=== PATIENT | male | born 1960 | race Caucasian/White ===

== ENCOUNTER 2020-06-29 11:32 | Outpatient (NON) | payer BC, SELFPAY ==
[2020-06-29 16:05] LABS: Influenza Control Positive
[2020-06-30 06:43] LABS: SARS-CoV-2 RNA PCR Positive
== END 2020-06-29 11:33 ==
PROVIDERS: PCP Internal Medicine; Visit Provider Internal Medicine
DX: U07.1 COVID-19 (principal)
CPT/HCPCS: 87635; 87804; C9803; U0003

== ENCOUNTER 2021-02-22 14:14 | Outpatient (CLI) | payer BC, SELFPAY ==
--- NOTE | ~2021-02-22 | XR_ITS ---
EXAMINATION: XR abdomen/kub 1V DATE: 02/22/2021 14:45 INDICATION: Other microscopic hematuria. TECHNIQUE: A supine view of the abdomen on 2 radiographs was obtained. COMPARISON: None. FINDINGS: There are no dilated loops of bowel. There is a 2 mm stone in right kidney. There is a 2 mm calcification in left pelvis. IMPRESSION: 1. 2 mm right kidney stone. 2. 2 mm calcification in left pelvis, which may be a phlebolith or distal ureteral stone. Reviewed, dictated and finalized at location A. IMPRESSION: 1. 2 mm right kidney stone. 2. 2 mm calcification in left pelvis, which may be a phlebolith or distal urete ral stone.
== END 2021-02-22 14:15 | disposition home or self-care (01) ==
LOC: ANHIMG 14:16
PROVIDERS: PCP Internal Medicine; Visit Provider Internal Medicine
DX: R31.29 Other microscopic hematuria (principal); N20.0 Calculus of kidney
CPT/HCPCS: 74018

== ENCOUNTER 2022-10-15 12:18 | Outpatient (CLI) | payer OTHER, SELFPAY ==
--- NOTE | ~2022-10-15 | XR_ITS ---
XR chest 2V DATE: 10/15/2022 12:45 INDICATION: Cough for 3 months TECHNIQUE: PA and lateral views COMPARISON: 05/17/2018 PA and lateral chest FINDINGS: Normal heart size. No hilar or mediastinal enlargement. No pulmonary infiltrate or consolid ation, pleural effusion or pulmonary mass congestion or pneumothorax. IMPRESSION: No active cardiopulmonary disease Reviewed, dictated and finalized at location L. RAFT ENGINEER
== END 2022-10-15 12:19 | disposition home or self-care (01) ==
LOC: ANHIMG 12:25
PROVIDERS: PCP Internal Medicine; Visit Provider Nurse Practitioner Family
DX: R05.9 Cough, unspecified (principal)
CPT/HCPCS: 71046

== ENCOUNTER 2023-04-16 00:11 | Day surgery (SDC) | payer OTHER, SELFPAY ==
[2023-04-02 09:38] VITALS: BMI 25.1
--- NOTE | 2023-04-15 10:25 | PM.HPGS ---
History of Present Illness History of Present Illness Consent: Risks, benefits, and alternatives have been discussed and questions answered. Patient agrees to proceed with procedure. Chief complaint: neoplasm screening Narrative: Curry Becerril III is a 62 year old male referred for colon cancer screening. His last colonoscopy was 9 years ago and was unremarkable. Review of Systems Review of Systems: All systems reviewed & are unremarkable except as noted in HPI and below PMFSH Past Medical History Medical History Close exposure to COVID-19 virus Social History Social History Smoking packs per day: 1.5 Smoking cigarettes per day: 30.0 Years smoked: 1.5 Smoking pack-years: 2.25 Smoking status: Former smoker Tobacco type: cigarettes Second hand tobacco smoke exposure: Yes Smoking end date: 08/11/97 Alcohol intake: never Substance use: never Substance use type: does not use Lack of Transportation: No Lack of Food: Never True Current Housing: I Have Housing Concerned About Future Housing: No Difficulty Paying Gas/Electric Bills: No Difficulty Paying for Meds: No Currently Unemployed: No Education: Decline to Answer Difficulty w/ Childcare or Family Care: No Living arrangements: with family Additional living arrangements comments: With Spiritual care concerns: No Meds Home Medications and Allergies Home Medications Medication Instructions Recorded Confirmed Type cholecalciferol (vitamin D3) 10 10 mcg PO DAILY 02/02/20 04/02/23 History mcg (400 unit) capsule omega-3 fatty acids 1,000 mg 1,000 mg PO DAILY 02/02/20 04/02/23 History capsule (Fish Oil Concentrate) ascorbic acid (vitamin C) 500 mg 50 mg PO DAILY 02/14/21 04/02/23 History capsule dextrin 3 gram/4 gram oral powder 3 g PO DAILY 02/14/21 04/02/23 History (Clear Fiber) ibuprofen 800 mg tablet 800 mg PO Q6H PRN Pain 08/27/22 04/02/23 History Allergies Allergy/AdvReac Type Severity Reaction Status Date / Time No Known Allergies Allergy Verified 04/16/23 06:19 Exam Const: General: alert Orientation/consciousness: patient oriented x3 Resp: Auscultation: clear to auscultation bilaterally Cardio: Rhythm: regular rhythm GI: GI Palp: Yes Soft to palpation and No Tenderness to palpation present (GI) Neuro: General: patient oriented x3 Assessment and Plan Assessment and plan (1) Screening for malignant neoplasm of colon: Code(s): Z12.11 - Encounter for screening for malignant neoplasm of colon Status: Acute Assessment and Plan: Colonoscopy with possible biopsy or polypectomy or cautery or injection of substances.
[2023-04-16 06:20] VITALS: BP 126/80; PULSE 74; RESP 18; TEMP 36.1; O2SAT 99
[2023-04-16] MEDS: LACTATED RINGERS 1,000 ML 150 ML IV CONT (06:30)
--- NOTE | 2023-04-16 07:26 | P.PNAN_ITS ---
Anes - Initial Pre Proc Eval Procedure: Operation Date: 04/16/23 07:30 Proposed Procedures p Screening Colonoscopy - Himanshu Cervantes MD Date/Time: 04/16/23 07:26 Surgeon: Himanshu Cervantes MD Pre Op Diagnosis: neoplasm screening Patient Data Age: 62 Gender: M Height: 1.83 m Weight: 81.6 kg Last Vital Signs Temp 97 F L 04/16/23 06:20 Pulse 74 04/16/23 06:20 Resp 18 04/16/23 06:20 BP 126/80 04/16/23 06:20 Pulse Ox 99 04/16/23 06:20 O2 Del Method Room Air 04/16/23 06:20 Allergies Allergy/AdvReac Type Severity Reaction Status Date / Time No Known Allergies Allergy Verified 04/16/23 06:19 Home Medications Medication Instructions Recorded Confirmed Type cholecalciferol (vitamin D3) 10 10 mcg PO DAILY 02/02/20 04/02/23 History mcg (400 unit) capsule omega-3 fatty acids 1,000 mg 1,000 mg PO DAILY 02/02/20 04/02/23 History capsule (Fish Oil Concentrate) ascorbic acid (vitamin C) 500 mg 50 mg PO DAILY 02/14/21 04/02/23 History capsule dextrin 3 gram/4 gram oral powder 3 g PO DAILY 02/14/21 04/02/23 History (Clear Fiber) ibuprofen 800 mg tablet 800 mg PO Q6H PRN Pain 08/27/22 04/02/23 History Patient hx anesthesia problems: none Family hx anesthesia problems: none Results Review: All pre-operative results and documents have been reviewed as part of the pre- operative evaluation. [facility] Past Medical History Medical History Close exposure to COVID-19 virus Social History Social History Smoking packs per day: 1.5 Smoking cigarettes per day: 30.0 Years smoked: 1.5 Smoking pack-years: 2.25 Smoking status: Former smoker Tobacco type: cigarettes Second hand tobacco smoke exposure: Yes Smoking end date: 08/11/97 Alcohol intake: never Substance use: never Substance use type: does not use Lack of Transportation: No Lack of Food: Never True Current Housing: I Have Housing Concerned About Future Housing: No Difficulty Paying Gas/Electric Bills: No Difficulty Paying for Meds: No Currently Unemployed: No Education: Decline to Answer Difficulty w/ Childcare or Family Care: No Living arrangements: with family Additional living arrangements comments: With Spiritual care concerns: No Anes - Eval Final PreProcedure Day of Procedure 04/16/23 07:26 Patient weight: normal Heart: regular rate and rhythm Lungs: clear to auscultation Airway: Mallampati scale class II Neurological: alert and oriented Last oral intake: >/= 8 hours ASA classification: II Emergent: no Anesthetic plan: proceed Anesthesia type and monitoring: general GIVS and standard monitoring Results Review: All pre-operative results and documents have been reviewed as part of the pre- operative evaluation. Informed Consent: The patient's anesthetic plan and its attendant risks and benefits were discussed with the patient/family/POA. Questions were solicited and answers provided to the satisfaction of the patient/family/POA.
[2023-04-16 07:45] VITALS: BP 99/53; PULSE 68; RESP 16; O2SAT 100
[2023-04-16 07:55] VITALS: BP 103/65; PULSE 60; RESP 16; O2SAT 100
[2023-04-16 08:05] VITALS: BP 114/69; PULSE 62; RESP 18; O2SAT 100
== END 2023-04-16 08:11 | disposition home or self-care (01) ==
PROVIDERS: PCP Family Medicine; Visit Provider Internal Medicine Gastroenterology
PROC: 0DJD8ZZ Inspection of Lower Intestinal Tract, Via Natural or Artificial Opening Endoscopic (ICD-10-PCS; CPT 45378; principal; 2023-04-16 07:30)
DX: Z12.11 Encounter for screening for malignant neoplasm of colon (principal); K64.8 Other hemorrhoids; Z87.891 Personal history of nicotine dependence
CPT/HCPCS: 45378; J2704; J7120

== ENCOUNTER 2023-05-09 10:13 | Outpatient (CLI) | payer OTHER, SELFPAY ==
--- NOTE | ~2023-05-09 | US_ITS ---
EXAMINATION: US soft tissue chest DATE: 05/09/2023 10:50 INDICATION: Left chest wall cyst. TECHNIQUE: Multiple grayscale and Doppler ultrasound images of the chest were obtained. COMPARISON: Chest CT 10/31/15 FINDINGS: The patient's area of concern correlates with a prominent calcified costosternal junction. IMPRESSION: 1. Prominent calcified costosternal junction correlating with the patient's area of concern. Reviewed, dictated and finalized at location E. IMPRESSION: 1. Prominent calcified costosternal junction correlating with the patient's are a of concern.
== END 2023-05-09 10:14 | disposition home or self-care (01) ==
PROVIDERS: PCP Nurse Practitioner Family; Visit Provider Nurse Practitioner Family
DX: R22.2 Localized swelling, mass and lump, trunk (principal); M61.9 Calcification and ossification of muscle, unspecified
CPT/HCPCS: 76604

== ENCOUNTER 2024-09-09 12:36 | Outpatient (CLI) | payer OTHER, SELFPAY ==
--- OUTSIDE RECORDS SUMMARY | 2024-09-09 13:20 | XMS_ITS | Clinical Summary ---
Author Organization [facility] Address [address] [place] [address] Care Team Providers Care Hard Tile Setter Apprentice Name Role Phone Unavailable Primary Care Provider Unavailabl e Source Comments [facility],non-owned Affiliates and Associated Physician Practices is amultiple site organization consisting of ambulatory clinics and hospital sitesin [place], [place], [place] and [place]. This disclosure is being madepursuant to the Care Everywhere program and may not contain all information available regarding this patient. Last updated 18.[facility] Social History Tobacco Use Types Packs/Day Years Used Date Smoking Tobacco: Never Assessed Sex and Gender Information Value Date Recorded Sex Assigned at Not on file Gender Identity Not on file Sexual Orientation Not on file Plan of Treatment Health Maintenance Due Date Last Done Comments COLOGUARD (AGES 45-75) - COL ON CA SCREENING 1960 COLON MONITORING 1960 COLONOSCOPY - COLON CA SCREENING 1960 CT COLONOGRAPHY - COLON CA SCREENING 1960 Colorectal Cancer Screening 1960 FIT - COLON CA SCREENING 1960 FLEX SIG - COLON CA SCREENING 1960 LIPID TESTING 1960 HIV SCREENING 1975 HEPATITIS C SCREENING 05/07/1978 DTAP/TDAP/TD VACCINES (1 - Tdap) 1979 PNEUMOCOCCAL VACCINE 50+ (1 of 1 - PCV) 2010 ZOSTER VACCINE (1 of 2) 2010 COVID-19 VACCINE ( - 2023-2 5 season) 2024 INFLUENZA VACCINE (#1) 2024 DEPRESSION SCREENING 08/11/2024 Respiratory Syncytial Virus (RSV) Vaccine Pt: or over 60 yrs (1 - 1-dose 75+ series) 2035 HEPATITIS B VACCINE Aged Out No longe r eligible based on patient's age to complete this topic HIB VACCINE Aged Out No longer eligi ble based on patient's age to complete this topic HPV VACCINE Aged Out No longer eligi ble based on patient's age to complete this topic MENINGOCOCCAL (Group B) VACCINE Aged Out No longer eligible based on patient's age to complete this topic MENINGOCOCCAL VACCINE Aged Out No nnamdi shoaib eligible based on patient's age to complete this topic PNEUMOCOCCAL VACCINE Aged Out No long er eligible based on patient's age to complete this topic
--- OUTSIDE RECORDS SUMMARY | 2024-09-09 13:20 | XMS_ITS | Encounter Summary ---
Author Organization [facility] Address [address] [place] [address] Care Team Providers Care Actionscript Developer Name Role Phone Unavailable Primary Care Provider Unavailabl e Encounter Details Date Type Department Care Team (Late st Contact Info) Description 04/02/2023 Lab Requisition [facility] - Derm[facility] [address], [place] [address] Stanford Munson MD [address] [place] [place] [address] Social History Tobacco Use Types Packs/Day Years Used Date Smoking Tobacco: Never Assessed Sex and Gender Information Value Date Recorded Sex Assigned at Not on file Gender Identity Not on file Sexual Orientation Not on file documented as of this encounter Plan of Treatment Not on file documented as of this encounter Procedures Procedure Name Priority Date/Time Associated Diagnosis Comments DERMATOPATHOLOGY Routine 04/02/2023 12:0 0 AM CDT documented in this encounter Results * DERMATOPATHOLOGY (04/02/2023 12:00 AM CDT) Case Report Dermatopathology Report ? Case: [id number] ? Authorizing Provider: ??Stanford Munson MD ?Collected: ? 04/02/2023 12:00 AM ? Ordering Location: ? [facility] ? Received: ?04/03/2023 07:47 AM ? Pathologist: ? Chio Blakely MD ? Specimen: ?Skin, right med. cants ? 3 4:15 PM CDT DERMATOPATHOLOGY LABORATORY Final Diagnosis Specimen A. SKIN, right med. canthus: BASAL CELL CARCINOMA, NODULAR TYPE; PIGMENTED (C44.319) (see microscopic description) 3 4:15 PM CDT DERMATOPATHOLOGY LABORATORY Clinical History Pig. BCCA vs. SK Path# [id number] 3 4:15 PM CDT DERMATOPATHOLOGY LABORATORY Gross Description Specimen A: Received is one formalin filled container labeled with the patient's name and designated right med. cants. The specimen consists of (2) pieces shave biopsy measuring 2x1x1, 2x1x1 mm. Jar 0. 3 4:15 PM CDT DERMATOPATHOLOGY LABORATORY Microscopic Description Specimen A. SKIN, right med. cants: There are aggregates of basaloid cells with a high nuclear to cytoplasmic ratio and peripheral palisading. There is abundant melanin. Additional deeper sections were obtained and reviewed. 3 4:15 PM CDT DERMATOPATHOLOGY LABORATORY Disclaimer An external and internal positive and negative controls are appropriate for the histochemical, immunohistochemical and immunofluorescence stain(s) in this case (if any), except where stated explicitly. The performance characteristics of the stain(s) cited in this report were developed and its performance characteristic determined by the Dermatopathology Laboratory at [facility], directed by Dr. Amara Estrada. These tests need not be, and therefore are not, approved by the [place] Food and Drug Administration. The tests are used for clinical purposes. Billing Codes Specimen Charges Stain Charges 49289 1 3 4:15 PM CDT DERMATOPATHOLOGY LABORATORY Embedded Images 3 4:15 PM CDT DERMATOPATHOLOGY LABORATORY Pathology/Cytolog y TISSUE SPECIMEN FROM SKIN / Unknown 04/02/2023 04/03/2023 7:47 AM CDT Stanford Munson MD LAB - PATHOLOGY/CYTO LOGY ORDERABLES DERMATOPATHOLOGY LABORATORY [facility] - Department of Dermatology [facility] Medicine [address] [place] [address], [address] [phone] documented in this encounter Visit Diagnoses Not on filedocumented in this encounter
--- OUTSIDE RECORDS SUMMARY | 2024-09-09 13:20 | XMS_ITS | Clinical Summary ---
Author Organization [facility] Address [address] [address] Care Team Providers Care Converter Supervisor Name Role Phone Ranjeet Jordan DO Primary Care Provider [phone] Allergies No known active allergies Medications levoFLOXacin (LEVAQUIN) 500 mg tablet Take 1 tablet (500 mg total) by mouth daily 7 tablet 2 Active ibuprofen (ADVIL,MOTRIN) 800 mg tablet Take 1 tablet (800 mg total) by mouth 3 (three) times a day Take with food. 30 tablet 2 Active ondansetron ODT (ZOFRAN-ODT) 4 mg disintegrating tablet Dissolve 1 tablet oral every 4 hours as needed for nausea or vomiting. 15 tablet 2 Active Social History Tobacco Use Types Packs/Day Years Used Date Smoking Tobacco: Never Assessed Sex and Gender Information Value Date Recorded Sex Assigned at Not on file Legal Sex Male 8:19 AM CDT Gender Identity Not on file Sexual Orientation Not on file Obstetrics History Last Filed Vital Signs Vital Sign Reading Time Taken Comments Blood Pressure 87/53 08/10/2022 9:00 AM HUMAN RESOURCE ADVISOR Pulse 98 08/10/2022 9:00 AM HUMAN RESOURCE ADVISOR Temperature 37.1 ??C (98.8 ??F) 08/10/2022 7:01 AM CS T Respiratory Rate 14 08/10/2022 9:00 AM HUMAN RESOURCE ADVISOR Oxygen Saturation 94% 08/10/2022 9:00 AM HUMAN RESOURCE ADVISOR Inhaled Oxygen Concentration - - Weight 83.9 kg (185 lb) 08/10/2022 7:01 AM HUMAN RESOURCE ADVISOR Height 182.9 cm (6') 08/10/2022 7:01 AM HUMAN RESOURCE ADVISOR Body Mass Index 25.09 08/10/2022 7:01 AM HUMAN RESOURCE ADVISOR Plan of Treatment Health Maintenance Due Date Last Done Comments Colon Cancer Screening-Colonoscopy 1960 Depression Screening 1960 Hepatitis C Screening 1960 Prostate Cancer Screening-PSA 1960 DTaP/Tdap/Td Vaccine (1 - Tdap) 1971 Hepatitis B Screening 1978 Regular Well Visit/Exam 18-64 1978 Zoster Vaccine (1 of 2) 2010 Influenza Vaccine (#1) 2024 Pneumococcal vaccine <65 Aged Out No longer eligible based on patient's age to complete this topic Insurance Clarivoy Clarivoy Care Teams Converter Supervisor Relationship Specialty Start Date End Date Ranjeet Jordan DO PCP - General Internal Medicine 08/10/22
--- OUTSIDE RECORDS SUMMARY | 2024-09-09 13:20 | XMS_ITS | Referral Summary ---
Author Organization [facility] Address [address] [address] Care Team Providers Care Tomb Maker Helper Name Role Phone Ranjeet Jordan DO Primary Care Provider [phone] Allergies No known active allergies Medications levoFLOXacin [...] on file Sexual Orientation Not on file Last Filed Vital Signs Vital Sign Reading Time Taken Comments Blood Pressure 87/53 08/10/2022 9:00 AM SPECIAL LIBRARY LIBRARIAN Pulse 98 08/10/2022 9:00 AM SPECIAL LIBRARY LIBRARIAN Temperature 37.1 ??C (98.8 ??F) 08/10/2022 7:01 AM CS T Respiratory Rate 14 08/10/2022 9:00 AM SPECIAL LIBRARY LIBRARIAN Oxygen Saturation 94% 08/10/2022 9:00 AM SPECIAL LIBRARY LIBRARIAN Inhaled Oxygen Concentration - - Weight 83.9 kg (185 lb) 08/10/2022 7:01 AM SPECIAL LIBRARY LIBRARIAN Height 182.9 cm (6') 08/10/2022 7:01 AM SPECIAL LIBRARY LIBRARIAN Body Mass Index 25.09 08/10/2022 7:01 AM SPECIAL LIBRARY LIBRARIAN Plan of Treatment Not on file Insurance LEHR OOS LEHR OOS Care Teams Tomb Maker Helper Relationship Specialty Start Date End Date Ranjeet Jordan DO PCP - General Internal Medicine 08/10/22
--- OUTSIDE RECORDS SUMMARY | 2024-09-09 13:20 | XMS_ITS | Continuity of Care Document ---
Author Organization [facility] Address [address] [place] [address] [address] [place] [address] Phone Care Team Providers Care Project Construction Manager Name Role Phone Michelle Leon Unavailable Unavailable Advance Directives Directive Yes / No Effective Date File Name No Information Encounters Encounter Description Practice Location Reason(s) For Visit Diagnoses Date Provider Providers Copied on Encounter [facility], [address], [place], [place], [id number], [place] tel:[phone] SEC [facility] No Information 5-200 5 Carolyn Martinez. [address] , [address], [place], [address], [place]. tel:[phone] Family History Family Member Type Diagnosis Age At Onset No Information Payers Payer name Insurance type Covered alliance party ID Authoriza tion(s) No Information Social History [...]
--- OUTSIDE RECORDS SUMMARY | 2024-09-09 13:20 | XMS_ITS | Patient Health Summary ---
Author Organization [facility] Address [address] [place] [address] Care Team Providers Care Residential Pest Control Technician Name Role Phone Unavailable Primary Care Provider Unavailabl e Note from [facility],non-owned Affiliates and Associated Physician Practices is amultiple site organization consisting of ambulatory clinics and hospital sitesin [place], [place], [place] and [place]. This disclosure is being madepursuant to the Care Everywhere program and may not contain all information available regarding this patient. Last updated 18.[facility] Social History Tobacco Use Types Packs/Day Years Used Date Smoking Tobacco: Never Assessed Sex and Gender Information Value Date Recorded Sex Assigned at Not on file Gender Identity Not on file Sexual Orientation Not on file Procedures * DERMATOPATHOLOGY(Performed 04/02/2023) Results * DERMATOPATHOLOGY (04/02/2023 12:00 AM CDT) Case Report Dermatopathology Report ? Case: [id number] ? Authorizing Provider: ??Stanford Munson MD ?Collected: ? 04/02/2023 12:00 AM ? Ordering Location: ? [facility] ? Received: ?04/03/2023 07:47 AM ? Pathologist: ? Chio Blakely MD ? Specimen: ?Skin, right med. canthus ? 3 4:15 PM CDT DERMATOPATHOLOGY LABORATORY Final Diagnosis Specimen A. SKIN, right med. canthus: BASAL CELL CARCINOMA, NODULAR TYPE; PIGMENTED (C44.319) (see microscopic description) 3 4:15 PM CDT DERMATOPATHOLOGY LABORATORY Clinical History Pig. BCCA vs. SK Path# [id number] 3 4:15 PM CDT DERMATOPATHOLOGY LABORATORY Gross [...] characteristic determined by the Dermatopathology Laboratory at [facility], directed by Dr. Amara Estrada. These tests need not be, and therefore are not, approved by the [place] Food and Drug Administration. The tests are used for clinical purposes. Billing Codes Specimen Charges Stain Charges 73884 1 3 4:15 PM CDT DERMATOPATHOLOGY LABORATORY Embedded Images 3 4:15 PM CDT DERMATOPATHOLOGY LABORATORY Pathology/Cytolog y TISSUE SPECIMEN FROM SKIN / Unknown 04/02/2023 04/03/2023 7:47 AM CDT Stanford Munson MD LAB - PATHOLOGY/CYTO LOGY ORDERABLES DERMATOPATHOLOGY LABORATORY [facility] - Department of Dermatology [facility] [address] [place] [address], [address] [phone]
--- OUTSIDE RECORDS SUMMARY | 2024-09-09 13:20 | XMS_ITS | Referral Summary ---
Author Organization [facility] Address [address] [place] [address] Care Team Providers Care Automatic Operator Name Role Phone Unavailable Primary Care Provider Unavailabl e Source Comments [facility],non-owned Affiliates and Associated Physician Practices is amultiple site organization consisting of ambulatory clinics and hospital sitesin [place], [place], [place] and [place]. This disclosure is being madepursuant to the Care Everywhere program and may not contain all information available regarding this patient. Last updated 18.[facility] Social History Tobacco Use Types Packs/Day Years Used Date Smoking Tobacco: Never Assessed Sex and Gender Information Value Date Recorded Sex Assigned at Not on file Gender Identity Not on file Sexual Orientation Not on file Plan of Treatment Not on file [address] [id number]
[2024-09-09 14:33] LABS: Add Urine Microscopic? NO; Appearance Urine Clear (Clear); Bilirubin Urine Negative (Negative); Blood Urine Negative (Negative); Color Urine Yellow (Yellow); Glucose Urine UA Negative (Negative); Ketones Urine Negative (Negative); Leukocyte Esterase Ur Negative LEU/UL (Negative); Nitrate Urine Negative (Negative); Protein Urine Negative (Negative); Urobilinogen Urine 0.2 mg/dL (<2.0); pH Urine 7.5 (5.0-9.0)
== END 2024-09-09 12:37 | disposition home or self-care (01) ==
LOC: ANHLAB 12:37
PROVIDERS: PCP Nurse Practitioner Family; Visit Provider Nurse Practitioner Family
DX: R30.0 Dysuria (principal)
CPT/HCPCS: 81003; 87086

== ENCOUNTER 2025-05-04 11:21 | Outpatient (CLI) | payer MEDICARE, SELFPAY ==
--- OUTSIDE RECORDS SUMMARY | 2005-04-04 06:00 | XMS_ITS | Continuity of Care Document ---
Author Organization [facility] Address [address] [place] [address] [address] [place] [address] Phone Care Team Providers Care Intelligence Clerk Name Role Phone Michelle Leon Unavailable Unavailable Advance Directives Directive Yes / No Effective Date File Name No Information Encounters Encounter Description Practice Location Reason(s) For Visit Diagnoses Date Provider Providers Copied on Encounter Located within [facility], [address], [place], [place], [id number], [place] tel:[phone] SEC [facility] No Information 5-200 5 Carolyn Martinez. [address] , [address], [place], [address], [place]. tel:[phone] Family History Family Member Type Diagnosis Age At Onset No Information Payers Payer name Insurance type Covered democrat ID Authoriza tion(s) No Information Social History Type Description Quantity Date Captured Comments Sex Male Smoking Status No Information Chief Complaint And Reason For Visit No Information Reason For Referral Reason For Referral No Information History Of Present Illness Encounter Date Complaint History Of Prese nt Illness No Information Functional Status Date Functional Assessmen t No Information Instructions Date Instruction Additional Infor mation No Information Assessments Type Assessment Date No Information Patient Care Teams Name Effective Dates (start - stop) Status Members No Information
--- NOTE | ~2025-05-04 | XR_ITS ---
Examination: XR foot LT min 3V, XR ankle LT min 3V Clinical History: M79.672 - Pain in left foot, TWISTED LT ANKLE Comparison: None Technique: 4 views left ankle, 4 views left foot Findings/impression: Left ankle: 1. No fracture, dislocation, or other acute abnormality identified left ankle Left foot: 1. No fracture, dislocation, or other acute abnormality identified left foot. Reviewed, dictated and finalized at location R.
--- OUTSIDE RECORDS SUMMARY | 2025-05-04 12:12 | XMS_ITS | Encounter Summary ---
Author Organization [facility] Address [address] [place] [address] Care Team Providers Care Chemist Enzymes Name Role Phone Unavailable Primary Care Provider Unavailabl e Encounter Details Date Type Department Care Team (Late st Contact Info) Description 04/02/2023 Lab Requisition [facility] - DermPath Lab [address], [facility] [place] [id number] Stanford Munson MD [address] [place] [id number] Social History Tobacco Use Types Packs/Day Years Used Date Smoking Tobacco: Never Assessed Sex and Gender Information Value Date Recorded Sex Assigned at Not on file Legal Sex Male 4:12 PM CDT Gender Identity Not on file Sexual Orientation Not on file documented as of this encounter Plan of Treatment Not on file documented as of this encounter Procedures Procedure Name Priority Date/Time Associated Diagnosis Comments DERMATOPATHOLOGY Routine 04/02/2023 12:0 0 AM CDT documented in this encounter Results * DERMATOPATHOLOGY (04/02/2023 12:00 AM CDT) Case Report Dermatopathology Report Case: [id number] Authorizing Provider: Stanford Munson MD Collected: 04/02/2023 12:00 AM Ordering Location: [facility] DermPath Lab Received: 04/03/2023 07:47 AM Pathologist: Chio Blakely MD Specimen: Skin, right med. canthus 4:15 PM CDT DERMATOPATHOLOGY LABORATORY Final Diagnosis Specimen A. SKIN, right med. canthus: BASAL CELL CARCINOMA, NODULAR TYPE; PIGMENTED (C44.319) (see microscopic description) 3 4:15 PM CDT DERMATOPATHOLOGY LABORATORY at 1615 CDT Clinical History Pig. BCCA vs. SK Path# [id number] 3 4:15 PM CDT DERMATOPATHOLOGY LABORATORY Gross Description Specimen A: Received is one formalin filled container labeled with the patient's name and designated right med. canthus. The specimen consists of (2) pieces shave biopsy measuring 2x1x1, 2x1x1 mm. Jar 0. 3 4:15 PM CDT DERMATOPATHOLOGY LABORATORY Microscopic Description Specimen A. SKIN, right med. canthus: There are aggregates of basaloid cells with [...] characteristic determined by the Dermatopathology Laboratory at [facility], directed by Dr. Amara Estrada. These tests need not be, and therefore are not, approved by the [place] Food and Drug Administration. The tests are used for clinical purposes. Billing Codes Specimen Charges Stain Charges 66790 1 3 4:15 PM CDT DERMATOPATHOLOGY LABORATORY Embedded Images 3 4:15 PM CDT DERMATOPATHOLOGY LABORATORY Pathology/Cytolog y TISSUE SPECIMEN FROM SKIN / Unknown 04/02/2023 04/03/2023 7:47 AM CDT us Stanford Munson MD LAB - PATHOLOGY/CYTOLOGY ORDER ANÍBAL Final Result DERMATOPATHOLOGY LABORATORY [facility] - Department of Dermatology [address], [address] [phone] documented in this encounter Visit Diagnoses Not on filedocumented in this encounter
--- OUTSIDE RECORDS SUMMARY | 2025-05-04 12:12 | XMS_ITS | Clinical Summary ---
Author Organization [facility] Address [address] [place] [address] Care Team Providers Care Research & Analytics Manager Name Role Phone Unavailable Primary Care Provider Unavailabl e Source Comments [facility] [employer],non-owned Affiliates and Associated Physician Practices is amultiple site organization consisting of ambulatory clinics and hospital sitesin [place], [place], [place] and [place]. This disclosure is being madepursuant to the Care Everywhere program and may not contain all information available regarding this patient. Last updated 18.[facility] [employer] Social History Tobacco Use Types Packs/Day Years [...] 2010 ZOSTER VACCINE (1 of 2) 2010 DEPRESSION SCREENING 08/11/2024 COVID-19 VACCINE (1 - 2023-2 5 season) 2025 INFLUENZA VACCINE (#1) 2025 Respiratory Syncytial Virus (RSV) Vaccine Pt: or [...] to complete this topic MENINGOCOCCAL (Group B) VACC INE SHARED DECISION-MAKING Aged Out No longer eligibl e based on patient's age to complete this topic MENINGOCOCCAL GROUPS A/C/Y/W VACCINE Aged Out No longer eligible b ased on patient's age [place] [address] AETNA
--- OUTSIDE RECORDS SUMMARY | 2025-05-04 12:12 | XMS_ITS | Clinical Summary ---
Author Organization [facility] Address [address] [address] Care Team Providers Care Manager Benefit Name Role Phone Ranjeet Jordan DO Primary Care Provider [phone] Allergies No known active allergies Medications levoFLOXacin [...] Comments Blood Pressure 87/53 08/10/2022 9:00 AM GENERAL INTERN Pulse 98 08/10/2022 9:00 AM GENERAL INTERN Temperature 37.1 C (98.8 F) 08/10/2022 7:01 AM GENERAL INTERN Respiratory Rate 14 08/10/2022 9:00 AM GENERAL INTERN Oxygen Saturation 94% 08/10/2022 9:00 AM GENERAL INTERN Inhaled Oxygen Concentration - - Weight 83.9 kg (185 lb) 08/10/2022 7:01 AM GENERAL INTERN Height 182.9 cm (6') 08/10/2022 7:01 AM GENERAL INTERN Body Mass Index 25.09 08/10/2022 7:01 AM GENERAL INTERN Plan of Treatment Health Maintenance Due Date Last Done Comments Colon Cancer Screening-Colonoscopy 1960 Depression Screening 1960 Hepatitis C Screening 1960 Prostate Cancer Screening-PSA 1960 DTaP/Tdap/Td Vaccine (1 - Tdap) 1971 Hepatitis B Screening 1978 Regular Well Visit/Exam 18-64 1978 Zoster Vaccine (1 of 2) 2010 Influenza Vaccine (#1) 2025 Pneumococcal vaccine <65 Aged Out No longer eligible based on patient's age to complete this topic Insurance [employer] Member Subscriber Plan / Payer (Ef fective 2002-Present) Name:Curry Becerril Relation to Subscriber:Self Name:Curry Becerril Payer ID:[id number] (NAIC) Type:[facility] [employer] Address: [place] [address] [employer] Member Subscriber Plan / Payer (Ef fective 2002-Present) Name:Curry Becerril Relation to Subscriber:Self Name:Curry Becerril Payer ID:[id number] (NAIC) Type:[employer] Address: [address] [place] [address] Care Teams Manager Benefit Relationship Specialty Start Date End Date Ranjeet Jordan DO PCP - General Internal Medicine 08/10/22
== END 2025-05-04 11:22 | disposition home or self-care (01) ==
PROVIDERS: PCP Nurse Practitioner Family; Visit Provider Nurse Practitioner Family
DX: S99.919A Unspecified injury of unspecified ankle, initial encounter (principal); M79.672 Pain in left foot
CPT/HCPCS: 73610; 73630

== ENCOUNTER 2025-06-08 10:46 | Outpatient (CLI) | payer MEDICARE, SELFPAY ==
--- NOTE | ~2025-06-08 | XR_ITS ---
EXAMINATION: XR ankle LT min 3V, 06/08/2025 11:12 CDT HISTORY: Pain in unspecified foot, injury x 6 weeks ago, swelling on COMPARISON: No comparisons available. Findings: No acute fracture or malalignment. No significant degenerative changes. Soft tissues unremarkable. Impression: No acute fracture or malalignment. Reviewed, dictated and finalized at location P. Impression: No acute fracture or malalignment.
--- NOTE | ~2025-06-08 | XR_ITS ---
EXAMINATION: XR foot LT min 3V, 06/08/2025 11:12 CDT HISTORY: M79.673 - Pain in unspecified foot COMPARISON: No comparisons available. Findings: No acute fracture or malalignment. No significant degenerative changes. Soft tissues unremarkable. Impression: No acute fracture or malalignment. Reviewed, dictated and finalized at location P. Impression: No acute fracture or malalignment.
--- OUTSIDE RECORDS SUMMARY | 2025-06-08 12:18 | XMS_ITS | Clinical Summary ---
Author Organization [facility] Address [address] [place] [address] Care Team Providers Care Senior Software Analyst Name Role Phone Unavailable Primary Care Provider Unavailabl e Source Comments [facility] [employer],non-owned Affiliates and Associated Physician Practices is amultiple site organization consisting of ambulatory clinics and hospital sitesin [place], [place], [place] and [place]. This disclosure is being madepursuant to the Care Everywhere program and may not contain all information available regarding this patient. Last updated 18.[facility] [employer] Social History Tobacco Use Types Packs/Day Years [...] patient's age to [place] [address] AETNA
--- OUTSIDE RECORDS SUMMARY | 2025-06-08 12:18 | XMS_ITS | Encounter Summary ---
Author Organization [facility] Address [address] [place] [address] Care Team Providers Care Mechanical Designer Name Role Phone Unavailable Primary Care Provider Unavailabl e Encounter Details Date Type Department Care Team (Late st Contact Info) Description 04/02/2023 Lab Requisition [facility] - DermPath Lab [address] [facility], [facility] [place] [phone] Stanford Munson MD [address] [place] [id number] Social History Tobacco Use Types Packs/Day Years [...] AM CDT) Case Report Dermatopathology Report Case: [id number] Authorizing Provider: Stanford Munson MD Collected: 04/02/2023 12:00 AM Ordering Location: [facility] DermPath Lab Received: 04/03/2023 07:47 AM Pathologist: Chio Blakely MD Specimen: Skin, right med. canthus 3 4:15 PM CDT DERMATOPATHOLOGY LABORATORY Final Diagnosis Specimen A. SKIN, right med. canthus: BASAL CELL CARCINOMA, NODULAR TYPE; PIGMENTED (C44.319) (see microscopic description) 3 4:15 PM CDT DERMATOPATHOLOGY LABORATORY at 1615 CDT Clinical History Pig. BCCA vs. SK Path# [id number] 3 4:15 PM CDT DERMATOPATHOLOGY LABORATORY Gross [...] determined by the Dermatopathology Laboratory at [facility], directed by Dr. Amara Estrada. These tests need not be, and therefore are not, approved by the [place] Food and Drug Administration. The tests are used for clinical purposes. Billing Codes Specimen Charges Stain Charges 93017 1 3 4:15 PM CDT DERMATOPATHOLOGY LABORATORY Embedded Images 3 4:15 PM CDT DERMATOPATHOLOGY LABORATORY Pathology/Cytolog y TISSUE SPECIMEN FROM SKIN / Unknown 04/02/2023 04/03/2023 7:47 AM CDT us Stanford Munson MD LAB - PATHOLOGY/CYTOLOGY ORDER ANÍBAL Final Result DERMATOPATHOLOGY LABORATORY [facility] - Department of Dermatology [address], [address] [phone] documented in this encounter Visit Diagnoses Not on filedocumented in this encounter
--- OUTSIDE RECORDS SUMMARY | 2025-06-08 12:18 | XMS_ITS | Clinical Summary ---
Author Organization [facility] Address [address] [address] Care Team Providers Care State Comptroller Name Role Phone Ranjeet Jordan DO Primary Care Provider Allergies No known active allergies Medications levoFLOXacin [...] Comments Blood Pressure 87/53 08/10/2022 9:00 AM MAIL PROCESSING ASSOCIATE Pulse 98 08/10/2022 9:00 AM MAIL PROCESSING ASSOCIATE Temperature 37.1 C (98.8 F) 08/10/2022 7:01 AM MAIL PROCESSING ASSOCIATE Respiratory Rate 14 08/10/2022 9:00 AM MAIL PROCESSING ASSOCIATE Oxygen Saturation 94% 08/10/2022 9:00 AM MAIL PROCESSING ASSOCIATE Inhaled Oxygen Concentration - - Weight 83.9 kg (185 lb) 08/10/2022 7:01 AM MAIL PROCESSING ASSOCIATE Height 182.9 cm (6') 08/10/2022 7:01 AM MAIL PROCESSING ASSOCIATE Body Mass Index 25.09 08/10/2022 7:01 AM MAIL PROCESSING ASSOCIATE Plan of Treatment Health Maintenance Due Date Last Done Comments Colon Cancer Screening-Colonoscopy 1960 Depression Screening 1960 Fall Risk Assessment 1960 Hepatitis C Screening 1960 Prostate Cancer Screening-PSA 1960 DTaP/Tdap/Td Vaccine (1 - Tdap) 1971 Hepatitis B Screening 1978 Pneumococcal vaccine 65+ (1 of 1 - PCV) 2010 Zoster Vaccine (1 of 2) 2010 Influenza Vaccine (#1) 2025 Abdominal Aortic Aneurysm (AAA) Screen 2025 Well Visit 65+ 2025 Insurance [employer] Care Teams State Comptroller Relationship Specialty Start Date End Date Ranjeet Jordan DO PCP - General Internal Medicine 08/10/22
== END 2025-06-08 10:47 | disposition home or self-care (01) ==
PROVIDERS: PCP Nurse Practitioner Family; Visit Provider Nurse Practitioner Family
DX: M79.673 Pain in unspecified foot (principal)
CPT/HCPCS: 73610; 73630

== ENCOUNTER 2025-07-10 06:58 | Outpatient (CLI) | payer MEDICARE, SELFPAY ==
--- NOTE | ~2025-07-10 | MR_ITS ---
EXAMINATION: MR foot LT wo con DATE: 07/10/2025 07:48 INDICATION: Lisfranc injury to the left foot TECHNIQUE: Magnetic resonance imaging (MRI) of the left fore/mid foot was performed without intravenous contrast. Sequences included sagittal T1-weighted FSE, sagittal fluid sensitive FSE STIR, coronal PD-weighted FS FSE, coronal T1- weighted FSE, axial PD-weighted FS FSE, and axial PD-weighted FSE. COMPARISON: Radiograph dated 06/08/2025 and 05/04/2025 FINDINGS: Complete tears of the plantar and intraosseous components of the Lisfranc ligament complex with partial tear of the dorsal component. There is likely secondary to 2-3 mm lateral subluxation of the base of the second metatarsal relative to the middle cuneiform. There is one-2 mm dorsal subluxation of the third and fourth metatarsals with respect to the lateral cuneiform and cuboid respectively. These minimal subluxations are evident on the radiographs from 06/08/2025 which appears to have developed since the radiographs from 05/04/2025. No fractures identified. There is however joint centered marrow edema along both sides of the tarsal metatarsal joints where there is mild to moderate nonuniform joint space narrowing most prominent at the third tarsal metatarsal joint which appears significantly progressed when compared with study dated 05/04/2025. 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 There is additional unchanged mild osteoarthritis at the first met atarsophalangeal joint. The collateral ligament complex at the metatarsophalangeal and interphalangeal joints are normal. The visualized portions of the flexor and extensor tendons are normal. There is likely reactive edema with of activity throughout the intrinsic musculature of the forefoot. No joint effusions, tenosynovitis or other abnormal fluid collections. IMPRESSION: 1. Lisfranc ligament complex tear, complete at the plantar and intraosseous components partial at the dorsal component with secondary slight dorsal and lateral subluxations at the second, third and fourth tarsometatarsal joints, new since 05/04/2025 and with worsening of likely secondary now mild to moderate osteoarthritis at the tarsal metatarsal joints. Reviewed, dictated and finalized at location A. NSED OCCUPATIONAL THERAPIST IMPRESSION: 1. Lisfranc ligament complex tear, complete at the plantar and intraosseous com ponents partial at the dorsal component with secondary slight dorsal and latera l subluxations at the second, third and fourth tarsometatarsal joints, new sinc e 05/04/2025 and with worsening of likely secondary now mild to moderate osteoar thritis at the tarsal metatarsal joints.
== END 2025-07-10 06:59 | disposition home or self-care (01) ==
PROVIDERS: PCP Nurse Practitioner Family; Visit Provider Podiatrist Foot & Ankle Surgery
DX: S99.922D Unspecified injury of left foot, subsequent encounter (principal); X58.XXXD Exposure to other specified factors, subsequent encounter
CPT/HCPCS: 73718

== ENCOUNTER 2025-07-29 02:38 | Day surgery (SDC) | payer MEDICARE, SELFPAY ==
[2025-07-21 12:16] VITALS: BMI 25.1
--- NOTE | 2025-07-21 12:39 | PC.NURSE ---
[facility] has started construction of its new state of the art ER which will open Spring 2026. With this, we anticipate parking may be a challenge for some our surgical patients and families. Parking spaces are limited but are available for all Surgical, obstetrics, and ER patients sharing this lot. If you arrive and find you are having a hard time finding a parking space, please note that we understand the challenges, please drive around the hospital and park near Hospital Entrance 1. When you enter this entrance, you can ask a volunteer to direct or take you back to the surgical waiting area to check in. We appreciate everyone?s understanding of these expected challenges while we build for your future. Report to the Outpatient Waiting Room, entrance under the green pavilion located off [address], at time __6:00AM___ on date __07/29/25___. Planned Procedure Time: ___7:30AM___.? Time changes happen often and if your time is changed the preop area will call you the afternoon before. - You and your visitor will be asked to self-screen and do not enter if you have any COVID symptoms. Please call surgeon if you need to reschedule. - A mask is optional within the hospital at this time. Patients may have clear liquids (water, carbonated beverages, clear teas, apple juice) until 3 hours prior to surgery with a maximum of 20 ounces. - No food from midnight until time of surgery and no smoking, or chewing tobacco (or any form of nicotine). No chewing gum, candy or mints. Take only the following medications with a SIP of water on the morning of surgery: ____ERYTHROMYCIN EYE OINTMENT DO NOT STOP ANY OF YOUR OTHER PRESCRIPTION MEDICATIONS PRIOR TO SURGERY EXCEPT THE FOLLOWING Hold all vitamins and supplements for 3 days per anesthesiologist.-LAST DOSE 07/25/25 (PATIENT PLANS TO HOLD FISH OIL 7 DAYS PRE-OP) Medications to discontinue per physician NONE Date to take last dose Please no make-up, nail spanish, hairspray, perfume, deodorant, or body powder the day of surgery.? No jewelry (including any body piercings) or valuables the day of surgery, leave them at home.? Please take a shower or bath the night before, or the morning of, surgery with an antibacterial soap.? Wear comfortable, loose fitting clothing.? Children are encouraged to wear pajamas. - Jewelry must be removed prior to entering the operating room.? Rings and piercings that are not removed may be cut off. - The hospital will not accept responsibility for valuables.? - Please leave all valuables, including medications, at home the day of surgery. If you are going home after surgery, a licensed fast food delivery driver must drive you home.? - NO public transportation without another adult if you receive anesthesia. - We recommend that an adult stay with you for 24 hours following discharge. - We also recommend that you do not drive, make important decision, drink alcoholic beverages, or take any drugs that were not prescribed by your health care provider for at least 24 hours after your discharge time. Follow any additional instructions given to you from your surgeon. Telephone instructions given to ____PATIENT and asked if any additional questions and then verbalized understanding. Patient advised to call surgeon office or pre surgery nurse liaison [phone] if any additional questions.
[2025-07-29] VITALS (11 sets, daily range): BP systolic 137–167; BP diastolic 84–108; PULSE 63–78; RESP 10–16; TEMP 36.3–36.5; O2SAT 98–100; BMI 25.0
--- NOTE | ~2025-07-29 | XR_ITS ---
EXAMINATION: XR surgery orthopedic DATE: 07/29/2025 09:24 INDICATION: Left foot arthrodesis TECHNIQUE: 2 fluoroscopic images of the left midfoot were obtained procedure performed by Dr. Hickman. Radiologist was not present for the imaging or procedure. The amount of fluoroscopy time used during this procedure was 1.8 minutes. The dose area product was 20.5 cGcm^2. COMPARISON: 06/08/2025 FINDINGS: Attempted medial midfoot arthrodesis with variable pitch compression screw and dorsal plate and screws spanning the first tarsometatarsal joint, dorsal sided staple fixation across the second tarsal metatarsal joint and a second variable pitch compression screw extending between the medial cuneiform and the base of the second metatarsal. Bone alignment appears near-anatomic. No fractures. Unfused joint spaces appear relatively preserved. Small plantar calcaneal spur. IMPRESSION: 1. Fluoroscopy utilized during a medial sided mid foot arthrodesis involving the medial and middle cuneiforms and the base of the first and second metatarsals. See procedure note for further detail. Reviewed, dictated and finalized at location A. ECT CONSULTANT IMPRESSION: 1. Fluoroscopy utilized during a medial sided mid foot arthrodesis involving th e medial and middle cuneiforms and the base of the first and second metatarsals . See procedure note for further detail.
--- OUTSIDE RECORDS SUMMARY | 2025-07-29 02:41 | XMS_ITS | Clinical Summary ---
Author Organization [facility] Address [address] [place] [address] Care Team Providers Care Poster Name Role Phone Unavailable Primary Care Provider Unavailabl e Source Comments [facility] [employer],non-owned Affiliates and Associated Physician Practices is amultiple site organization consisting of ambulatory clinics and hospital sitesin [place], [place], [place] and [place]. This disclosure is being madepursuant to the Care Everywhere program and may not contain all information available regarding this patient. Last updated 18.[facility] [employer] Social History Tobacco Use Types Packs/Day Years [...] DEPRESSION SCREENING 08/11/2024 COVID-19 VACCINE (1 - 2024-2 6 season) 2025 INFLUENZA VACCINE (#1) 2025 Respiratory [...] patient's age to complete [place] [address] AETNA
--- OUTSIDE RECORDS SUMMARY | 2025-07-29 02:41 | XMS_ITS | Clinical Summary ---
Author Organization [facility] Address [address] [address] Care Team Providers Care Web Site Developer Name Role Phone Ranjeet Jordan DO Primary Care Provider [phone] Allergies No known active allergies Medications levoFLOXacin [...] Comments Blood Pressure 87/53 08/10/2022 9:00 AM CONTROLS ENGINEER Pulse 98 08/10/2022 9:00 AM CONTROLS ENGINEER Temperature 37.1 C (98.8 F) 08/10/2022 7:01 AM CONTROLS ENGINEER Respiratory Rate 14 08/10/2022 9:00 AM CONTROLS ENGINEER Oxygen Saturation 94% 08/10/2022 9:00 AM CONTROLS ENGINEER Inhaled Oxygen Concentration - - Weight 83.9 kg (185 lb) 08/10/2022 7:01 AM CONTROLS ENGINEER Height 182.9 cm (6') 08/10/2022 7:01 AM CONTROLS ENGINEER Body Mass Index 25.09 08/10/2022 7:01 AM CONTROLS ENGINEER Plan of Treatment Health Maintenance Due Date [...] Screen 2025 Well Visit 65+ 2025 Insurance [employer] Care Teams Web Site Developer Relationship Specialty Start Date End Date Ranjeet Jordan DO PCP - General Internal Medicine 08/10/22
--- OUTSIDE RECORDS SUMMARY | 2025-07-29 02:41 | XMS_ITS | Encounter Summary ---
Author Organization [facility] Address [address] [place] [address] Care Team Providers Care Commuter Train Operator Name Role Phone Unavailable Primary Care Provider Unavailabl e Encounter Details Date Type Department Care Team (Late st Contact Info) Description 04/02/2023 Lab Requisition [facility] - DermPath Lab [address] [facility] [place] [phone] Stanford Munson MD [address] [place] [id number] Social History Tobacco Use Types Packs/Day Years [...] AM CDT) Case Report Dermatopathology Report Case: [id number] Authorizing Provider: Stanford Munson MD Collected: 04/02/2023 12:00 AM Ordering Location: [facility] DermPath Lab Received: 04/03/2023 07:47 AM Pathologist: Chio Blakely MD Specimen: Skin, right med. canthus 3 4:15 PM CDT DERMATOPATHOLOGY LABORATORY Final Diagnosis Specimen A. SKIN, right med. canthus: BASAL CELL CARCINOMA, NODULAR TYPE; PIGMENTED (C44.319) (see microscopic description) 3 4:15 PM CDT DERMATOPATHOLOGY LABORATORY at 1615 CDT Clinical History Pig. BCCA vs. SK Path# [id number] 3 4:15 PM CDT DERMATOPATHOLOGY LABORATORY Gross [...] characteristic determined by the Dermatopathology Laboratory at [facility], directed by Dr. Amara Estrada. These tests need not be, and therefore are not, approved by the [place] Food and Drug Administration. The tests are used for clinical purposes. Billing Codes Specimen Charges Stain Charges 62206 1 3 4:15 PM CDT DERMATOPATHOLOGY LABORATORY Embedded Images 3 4:15 PM CDT DERMATOPATHOLOGY LABORATORY Pathology/Cytolog y TISSUE SPECIMEN FROM SKIN / Unknown 04/02/2023 04/03/2023 7:47 AM CDT us Stanford Munson MD LAB - PATHOLOGY/CYTOLOGY ORDER ANÍBAL Final Result DERMATOPATHOLOGY LABORATORY [facility] - Department of Dermatology [address], [address] [phone] documented in this encounter Visit Diagnoses Not on filedocumented in this encounter
[2025-07-29] MEDS: LACTATED RINGERS 1,000 ML 30 ML IV CONT ×2 (06:20→10:19)
--- NOTE | 2025-07-29 06:50 | WPDANESEPPF ---
Anes - Initial Pre Proc Eval Procedure: Operation Date: 07/29/25 07:30 Proposed Procedures p Primary Arthrodesis Lisfranc Joint Left Foot - Nickolas Hickman Jr., DPM Date/Time: 07/29/25 06:50 Surgeon: Nickolas Hickman Jr., DPM Pre Op Diagnosis: lisfranc injury left foot Patient Data Age: 65 Gender: M Height: 1.83 m Weight: 84 kg Allergies Allergy/AdvReac Type Severity Reaction Status Date / Time No Known Allergies Allergy Verified 07/21/25 12:09 Home Medications ?Medication ?Instructions ?Recorded ?Confirmed ?Type cholecalciferol (vitamin D3) 10 10 mcg PO DAILY 02/02/20 07/21/25 History mcg (400 unit) capsule omega-3 fatty acids 1,000 mg 1,000 mg PO DAILY 02/02/20 07/21/25 History capsule (Fish Oil Concentrate) ascorbic acid (vitamin C) 500 mg 50 mg PO DAILY 02/14/21 07/21/25 History capsule dextrin 3 gram/4 gram oral powder 3 g PO DAILY 02/14/21 07/21/25 History (Clear Fiber) testosterone enanthate 200 mg/mL 200 mg IM WEEKLY 02/10/24 07/21/25 History intramuscular syringe erythromycin 5 mg/gram (0.5 %) eye 0.5 inch LEFT EYE BID #3.5 grams 07/20/25 07/21/25 Rx ointment oxycodone-acetaminophen 5 mg-325 1 tablet PO Q4-6H PRN pain #40 tabs 07/28/25 Rx mg tablet (Percocet) rivaroxaban 10 mg tablet (Xarelto) 10 mg PO DAILY #14 tabs 07/28/25 Rx Patient hx anesthesia problems: none Family hx anesthesia problems: none Results Review: All pre-operative results and documents have been reviewed as part of the pre-operative evaluation. [facility] Past Medical History Medical History Close exposure to COVID-19 virus Family History Family History Father Family history of throat cancer Mother Patient's mother is in good health Hypertension Sibling Patient's sister is in good health Patient's brother is in good health Hypertension Social History Social History Smoking packs per day: 1.5 Smoking cigarettes per day: 30.0 Years smoked: 1.5 Smoking pack-years: 2.25 Smoking status: Former smoker Tobacco type: cigarettes Second hand tobacco smoke exposure: Yes Smoking end date: 08/11/97 Alcohol intake: never Substance use: never Substance use type: does not use Lack of Transportation: No Lack of Food: Never True Current Housing: I Have Housing Concerned About Future Housing: No Difficulty Paying Gas/Electric Bills: No Difficulty Paying for Meds: No Currently Unemployed: No Education: Decline to Answer Difficulty w/ Childcare or Family Care: No Living arrangements: with family Additional living arrangements comments: With Occupation/Education: retired Gender identity (if verbalized by the patient): Male Sexual Orientation (if Verbalized by the Patient): Straight or Heterosexual Spiritual care concerns: No Agree to blood products: Yes Anes - Eval Final PreProcedure Day of Procedure 07/29/25 06:50 Patient weight: normal Heart: regular rate and rhythm Lungs: clear to auscultation Airway: Mallampati scale class II Neurological: alert and oriented Last oral intake: >/= 8 hours ASA classification: I Emergent: no Anesthetic plan: proceed Anesthesia type and monitoring: general LMA and standard monitoring Results Review: All pre-operative results and documents have been reviewed as part of the pre-operative evaluation. Informed Consent: The patient's anesthetic plan and its attendant risks and benefits were discussed with the patient/family/POA. Questions were solicited and answers provided to the satisfaction of the patient/family/POA.
--- NOTE | 2025-07-29 07:17 | WPDHPUPDATE1 ---
History and Physical Update Update Date/Time: 07/29/25 07:17 History and Physical has been reviewed, including an updated exam of the patient. There are NO changes in the patient's condition. Risks, benefits, and alternatives have been discussed and questions answered. Patient agrees to proceed with procedure.
[2025-07-29] MEDS: ceFAZolin 2 GM in SODIUM CHLORIDE 0.9% IV 50 ML 100 ML IVPB (07:26)
--- NOTE | 2025-07-29 09:52 | P.OP_ITS ---
Procedure Note - Detailed Date of Procedure 07/29/25 Pre-op Diagnosis Lisfranc injury dislocation left foot Post-op Diagnosis Same Procedure Performed 1. Correction of Lisfranc dislocation with Arthrodesis of the 1st and 2nd metatarsals Surgeon Nickolas Hickman Jr., DPM Anesthesia General and Local Indications Painful left midfoot post midfoot sprain Description of Procedure Under mild sedation, the patient was brought to the operating room, placed on the operating table in the supine position.? A pneumatic ankle tourniquet was placed about the patient's left calf. Following general anesthesia I performed a common peroneal block 3cm distal and posterior to the neck of the fibula with 20cc of a 1:1 mix of 2% Lidocaine plain and 0.5% Marcaine plain, the foot was then scrubbed, prepped, and draped in the usual aseptic manner.? An Esmarch bandage was then used to examine the patient's foot and pneumatic calf tourniquet was then inflated. ? Surgery began in the following manner.? Attention was directed to the dorsal aspect of the 1st metatarsocuneiform of the foot where fluoroscopy was used to identify the joint. ? A 3 cm incision was made overlying the dorsal aspect of the 1st metatarsocuneiform joint of the foot just medial to the extensor hallucis longus tendon.? The incision was then continued deep down through the subcutaneous tissues using sharp and blunt dissection.? All bleeders were ligated and cauterized as necessary.? At this point, the extensor tendon was identified and reflected laterally.? Next, the periosteum and capsular incision was made at the full length of the skin incision exposing the medial cuneiform as well as the base of the 1st metatarsal.? Next, a sagittal bone saw was introduced from dorsal to plantar across the 1st metatarsocuneiform joint in order to free up any ankylosed portions of the joint and also to release any adhesions. Two Steinmann Pins were driven from dorsal to plantar 1cm proximal and distal to the 1st metatarsal cuneiform joint and a distractor was used to expose the joint. Next, a sharp curved osteotome and curette was used to resect the cartilage and subchondral bone and a 2.0mm drill bit was used to fenestrate the joint to promote fusion. The pins and distractor was now removed. ? Next, an Arthrex Headless 4.0 mm cannulated screw was driven from the medial base of the 1st metatarsal to the medial cuneiform joint under fluoroscopic guidance. Excellent compression was noted across the joint. Moreover, An Arthrex linear 5 hole plate was placed along the dorsal medial aspect of the 1st metatarsal cuneiform joint and the two 3.0mm proximal locking screws were drilled from dorsal to plantar. Next the one eccentrically drilled non locking screws was used to further compress the joint to ensure arthrodesis. Finally the most distal 3.0mm locking screw was drilled from dorsal to plantar across the plate into the metatarsal shaft. Attention was directed to the dorsal aspect of the midfoot overlying the 2nd metatarsal cuneiform joint making a 6 cm incision over the 2nd metatarsal shaft to the proximal intermediate cuneiform joint. The incision was continued deep down through the subcutaneous tissues using sharp and blunt dissection careful to retract the neurovascular structures medially. All bleeders were cauterized as necessary. At this point, the dissection was continued down to the periosteal layer where the periosteum was reflected medially and laterally e xposing the joint that had a small osteophyte. I used an osteotome and mallet to resect the large osteophyte and used a tidwell rasp to smooth any rough edges., I did protect the neurovascular structures. Two Steinmann Pins were driven from dorsal to plantar 1cm proximal and distal to the 2nd metatarsal cuneiform joint and a distractor was used to expose the joint. Next, a sharp curved osteotome and curette was used to resect the cartilage and subchondral bone and a 2.0mm drill bit was used to fenestrate the joint to promote fusion. The pins and distractor was now removed. At this point the Arthrex Lapidus clamp was placed along the base of the 1st and 2nd metatarsals and used to reduce the diastasis between the 1st and 2nd metatarsals. Next a 4.0mm Arthrex cannulated screw was driven from the medial cuneiform to the 2nd metatarsal base to stabilize and fixate along the are of the Lisfranc interosseous ligament. Fluoroscopy was used to make sure that the diastasis was reduced. Next I drove an Arthrex 20mm by 15mm Nitinol staple from dorsal to plantar across the 2nd metatarsal cuneiform joint. I flushed the operation sites with copious amounts of sterile saline and dropped the tourniquet for a few minutes to make sure there was no active bleeding none were noted. ? The periosteum and capsular structures wer reapproximated and coapted utilizing simple interrupted suture fashion technique along the 1st and 2nd metatarsal cuneiform joints with 3.0 Vicryl. Next, the subcutaneous structures were reapproximated and coapted utilizing 4-0 Vicryl.? Next, the skin was reapproximated and coapted utilizing 4-0 Monocryl in running subcuticular suture fashion technique. Upon completion of the procedure, the incision was dressed with Steri-Strips, Adaptic, 4 x 4's, Kerlix, and Coban.? The pneumatic ankle tourniquet was then deflated and a prompt hyperemic response noted to all digits of the foot. A posterior splint was then applied with the foot held 90 degrees to the leg. ? The patient did very well with the procedure and the anesthesia.? The patient was transferred to the recovery room with vital signs stable and vascular status intact to all toes of the foot.? Following a period of postoperative monitoring, the patient will be discharged home on the following written and oral postoperative instructions: 1. Keep the dressing clean, dry, and intact.? Use a cast protector bag with showers. 2. The patient to be strictly nonweightbearing with a knee scooter. 3. The patient should ice and elevate the? foot when at rest. 4. The patient to contact Dr. Hickman for all postop care and if any problems arise. 5. Prescriptions were written for Percocet 5/325 dispensed 40 to be taken 1 p.o. q.4 to 6 hours as needed for severe pain. Implants Two Arthrex 4.0mm Headless Screws One Arthrex 20 by 15 mm Nitinol staple One Arthrex 5 hole linear plate with 4 locking and one non locking screws. Estimated Blood Loss 10 Drains No Packing No Pathology None sent Complications No immediate complications Condition Stable Disposition Same day
[2025-07-29] MEDS: fentaNYL CITRATE INJ (*CRX) 100 MCG/2 ML VIAL 25 MCG IV PUSH ×4 (09:58→10:42)
[2025-07-29] MEDS: oxyCODONE HCL (*CRX) 5 MG TAB IR PO (11:01)
[2025-07-29] MEDS: ONDANSETRON INJ 4 MG/2 ML VIAL IV PUSH (11:33)
== END 2025-07-29 12:14 | disposition home or self-care (01) ==
PROVIDERS: PCP Nurse Practitioner Family; Visit Provider Podiatrist Foot & Ankle Surgery
PROC: (CPT 28750; principal; 2025-07-29 07:30)
DX: S93.325A Dislocation of tarsometatarsal joint of left foot, initial encounter (principal); X50.0XXA Overexertion from strenuous movement or load, initial encounter; Y93.64 Activity, baseball; Z87.891 Personal history of nicotine dependence
CPT/HCPCS: 28730; 99199; J0690; A9270; C1713; J2003; J2250; J2405; J2704; J3010; J7120